=== PATIENT | male | born 1975 ===

== ENCOUNTER 2024-02-05 14:15 | Emergency (ER) | payer OTHER ==
[2024-02-05 16:19] LABS: BASOPHILS PERCENT AUTO 0.3 % (0.0-1.0); EOSINOPHILS PERCENT AUTO 0.3 % (0.0-6.0); HEMATOCRIT 38.5 % (42.0-52.0); HEMOGLOBIN 13.3 gm/dl (14.0-18.0); IMMATURE GRAN ABSOLUTE AUTO 0.02 K/mm3 (0.00-0.05); IMMATURE GRAN PERCENT AUTO 0.3 % (0.0-0.4); LYMPHOCYTES PERCENT AUTO 27.2 % (24.0-44.0); MEAN CORPUSCULAR HEMOGLOBIN 29.5 pg (28.0-32.0); MEAN CORPUSCULAR HGB CONC 34.5 g/dl (32.0-36.0); MEAN CORPUSCULAR VOLUME 85.4 fl (83.0-99.0); MEAN PLATELET VOLUME 12.3 fl (9.4-12.4); MONOCYTES ABSOLUTE AUTO 0.7 K/mm3 (0.0-0.8); MONOCYTES PERCENT AUTO 9.2 % (0.0-8.0); NEUTROPHILS ABSOLUTE AUTO 4.5 K/mm3 (1.8-7.7); NEUTROPHILS PERCENT AUTO 62.7 % (41.0-71.0); PLATELET COUNT,PLT 113 K/mm3 (150-400); RED BLOOD CELL COUNT 4.51 M/mm3 (4.52-5.90); WHITE BLOOD CELL COUNT,WBC 7.21 K/mm3 (3.9-11.3)
[2024-02-05 16:33] LABS: INR 1.9; PROTHROMBIN TIME 19.3 SECONDS (9.7-12.0)
[2024-02-05 16:52] LABS: A/G RATIO 0.6 (1-2); ALBUMIN 2.2 g/dl (3.4-5.0); ALKALINE PHOSPHATASE 161 U/L (46-116); ANION GAP 8.2 (5-15); BILIRUBIN TOTAL 17.6 mg/dL (0.2-1.0); BLOOD UREA NITROGEN,BUN 5 mg/dL (7-18); BUN/CREATININE RATIO 7.1 (14-18); CARBON DIOXIDE,CO2 29 mEq/L (21-32); CHLORIDE,CL 107 mEq/L (98-107); ESTIMATED GFR 115 mL/min (>60); LIPASE 162 U/L (16-77); MAGNESIUM 1.8 mg/dL (1.8-2.4); SODIUM,NA 140 mEq/L (136-145)
[2024-02-05 16:53] LABS: POTASSIUM,K 4.2 mEq/L (3.5-5.1); PROTEIN TOTAL,TP 5.9 g/dl (6.4-8.2)
[2024-02-05 16:54] LABS: ALANINE AMINOTRANSFERASE,ALT 1591 U/L (16-63); ASPARTATE AMNIOTRANSFERASE,AST 180 U/L (15-37); CREATININE 0.7 mg/dL (0.7-1.3); GLUCOSE RANDOM 365 mg/dL (70-99)
[2024-02-05] MEDS: Sodium Chloride 0.9% 1,000 ML IV SCH (17:29)
[2024-02-05] MEDS: Sodium Chloride 0.9% 10 ML Syringe FLUSH ONE (17:29)
[2024-02-05 17:33] LABS: APPEARANCE,URINE CLEAR (Clear); BILIRUBIN,URINE 2+ (Negative); COLOR,URINE YELLOW (Yellow); GLUCOSE,URINE 3+ (Negative); KETONES,URINE NEGATIVE (Negative); LEUKOCYTE ESTERASE,URINE NEGATIVE (Negative); NITRITE,URINE NEGATIVE (Negative); OCCULT BLOOD,URINE NEGATIVE (Negative); PROTEIN,URINE NEGATIVE (Negative)
[2024-02-05] MEDS: Iopamidol 612 MG/ML 100 ML Bottle IVPUSH ONE (17:54)
[2024-02-05 19:01] LABS: HEMOGLOBIN A1C 6.1 %
[2024-02-05 19:33] LABS: LACTIC ACID 1.5 mmol/L (0.4-2.0)
[2024-02-05] MEDS: Piperacillin/Tazobactam 4.5 GM in Sodium Chloride 0.9% 100 ML IV ONE (19:51)
[2024-02-05 20:36] LABS: BARBITURATE SCREEN,URINE NEGATIVE (CUTOFF=200); BENZODIAZEPINES SCREEN,URINE NEGATIVE (CUTOFF=150); BUPRENORPHINE SCREEN,URINE NEGATIVE (CUTOFF=10); METHADONE SCREEN, URINE NEGATIVE (CUT0FF=200); METHAMPHETAMINES SCREEN, URINE NEGATIVE (CUTOFF=500); OXYCODONE SCREEN,URINE NEGATIVE (CUT0FF=100); THC SCREEN,URINE 20 NG/ML NEGATIVE (CUTOFF=50)
[2024-02-05 20:38] LABS: AMPHETAMINES SCREEN, URINE NEGATIVE (CUTOFF=500)
[2024-02-05] MEDS ORDERED: Sodium Chloride 0.9% 1,000 ML IV SCH (21:00)
== END 2024-02-05 21:50 ==
LOC: JD.ED 14:15
DX: K72.00 Acute and subacute hepatic failure without coma (principal); E80.6 Other disorders of bilirubin metabolism; Z79.899 Other long term (current) drug therapy; Z79.84 Long term (current) use of oral hypoglycemic drugs
CPT/HCPCS: 36415; 74177; 76705; 80053; 80306; 81003; 82248; 83036; 83605; 83690; 83735; 85025; 85610; 86140; 87040; 87635; 96361; 96365; 99285; J2543; J3490; J7030; Q9967; U0002